=== PATIENT | male | born 2000 | race Caucasian/White ===

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

== ENCOUNTER 2020-01-03 08:23 | Emergency (ER) | payer BC, SELFPAY | END 2020-01-03 08:50 | disposition home or self-care (01) | LOC: ERS 08:23 | DX: A69.1 Other Vincent's infections (principal); F41.9 Anxiety disorder, unspecified; F32.9 Major depressive disorder, single episode, unspecified; Z79.899 Other long term (current) drug therapy | CPT/HCPCS: 99282 ==

== ENCOUNTER 2020-06-22 07:23 | Inpatient (IN) | payer OTHER, SELFPAY ==
[2020-06-22 08:24] LABS: #Lymphocytes 0.9 thou/uL (1.20-3.40); #Monocytes 0.4 thou/uL (0.11-0.59); #Neutrophils 3.7 thou/uL (1.40-6.50); %Basophils 0.9 % (0.0-1.0); %Eosinophils 0.9 % (0.0-10.0); %Monocytes 8.4 % (0.0-4.0); %Neutrophils 72.7 % (31.0-61.0); Hemoglobin 14.9 g/dL (14.0-18.0); Mean Corpuscular HGB CONC 34.4 g/dL (32.0-36.0); Mean Corpuscular Hemoglobin 31.7 pg (25.0-35.0); Mean Platelet Volume 7.3 fL (7.4-10.4); Platelet Count 183 thou/uL (130-400); RBC Distribution Width 11.5 % (11.5-14.5); White Blood Cell (WBC) Count 5.1 thou/uL (4.8-10.8)
[2020-06-22] MEDS ORDERED: Ondansetron PF 4 MG/2 ML Vial ONE (08:28)
[2020-06-22] MEDS ORDERED: Morphine 4 MG/ML VIAL ONE ×3 (08:28→15:50)
[2020-06-22 08:41] LABS: ALT (SGPT) 10 U/L (8-55); AST (SGOT) 14 U/L (5-34); Albumin 4.5 g/dL (3.5-5.0); Alkaline Phosphatase 59 U/L (50-130); Anion Gap 11 mmol/L (10-20); BUN (Urea Nitrogen) 7 mg/dL (8.9-20.6); Calc. Creatinine Clearance 0 mL/min (70-130); Calcium 8.8 mg/dL (7.8-10.44); Carbon Dioxide 28 mmol/L (22-29); Chloride 103 mmol/L (98-107); Globulin 2.4 g/dL (2.4-3.5); Glucose 110 mg/dL (70-105); Lipase 8 U/L (8-78); Protein, Total 6.9 g/dL (6.0-8.3); Sodium 138 mmol/L (136-145)
[2020-06-22 09:00] LABS: Bacteria/HPF None Seen HPF (None Seen); Bilirubin Negative (Negative); Blood, Urine Negative (Negative); Clarity Clear (Clear); Glucose, Urine (Dipstick) Normal (Negative); Ketone, Urine Negative (Negative); Leukocyte 500 Leu/uL (Negative); Nitrite 1+ (Negative); Protein, Urine (Dipstick) Negative (Neg-Trace); RBC/HPF 0-3 HPF (0-3); Specific Gravity, Urine 1.004 (1.002-1.036); Squamous Epithelial None Seen HPF (0-3); Urobilinogen Normal mg/dL (Less than 2); WBC/HPF Greater than 50 HPF (0-3)
--- NOTE | 2020-06-22 09:44 | CT ---
CT abdomen and pelvis with IV contrast HISTORY: Abdomen pain. Rectal bleeding. Dysuria. COMPARISON: 07/13/2019. FINDINGS: The lung bases are clear. The liver, spleen, kidneys, adrenal glands, and pancreas have a n ormal CT appearance. The tiny urinary tract calcifications on the prior study are not visible on this exam, possibly having passed in the interval. No evidence of bowel obstruction. A nondilated fluid-filled loop of small bowel sits immediately supe rior to the left side of the bladder dome. Appendix unremarkable. Prominent circumferential wall thickening of the rectum, measuring up to 1.1 cm. No adjacent free air . Minimal fluid. Stranding within the perirectal and presacral fat similar in appearance to the prior exam. Sagittal images best demonstrate soft tissue projecting below the expected level of the a nus, possibly related to degree of prolapse or prominent hemorrhoids. A left upper pararectal/internal inguinal lymph node is 0.8 cm short axis diameter and a nonspecific finding in th e setting of retroperitoneal inflammation. IMPRESSION : Prominent rectal wall thickening and perirectal fat stranding and perirectal lymph nodes not signific antly changed from the prior exam. No evidence of perforation or foreign body. Soft tissue density inferior to the expected level of the anus. Correlate for prolapse or prominent h emorrhoids.
--- NOTE | 2020-06-22 11:16 | PDOC.HHP ---
Hospitalist YUMI rectal pain History of Present Illness: 20-year-old male who came to emergency room with the lower abdominal pain and rectal bleeding, symptoms started on 4 days ago, patient was also having increased frequency and burning sensation with urination, patient also noticed some rectal bleeding yesterday, patient denies any fever or chills, patient was taking Azo for burning sensation in urination without any significant relief, he does not have any penile discharge, Patient reports that he had similar problem in the past and he required surgery for rectal prolapse, he was seeing gastroenterology in [facility], patient denies any sexually transmitted disease, he has 1 male partner but he denies any receptive intercourse, denies any rectal discharge, he denies any fever or chills, In the emergency room patient had abdominal CT scan because of lower abdominal pain which showed proctitis, his urine analysis consistent with urinary tract infection, in emergency room gastroenterology was notified, initially there was plan for discharge but he remained tachycardic so we decided to keep this patient in hospital for observation. ED Course: Patient is given morphine in the emergency room, Levaquin was given, gastroenterology has been consulted, Allergies/Adverse Reactions: Allergy/AdvReac Type Severity Reaction Status Date / Time amoxicillin Allergy Verified 06/22/20 11:18 Home Medications: Medication Instructions Recorded Confirmed Type No Known 06/22/20 06/22/20 History Past History: Past medical history rectal prolapse and kidney stone with a stent placement Past surgical history Surgery for rectal prolapse Stent for kidney stone Past psychiatric history Anxiety and depression Medication Zoloft for depression Social history No smoking no alcohol no drugs Hospitalist YUMI GARCIA ENT: denies: ear pain, ear discharge, nose pain, nose discharge, nose congestion, mouth pain, mouth swelling, throat pain, throat swelling, other Respiratory: denies: cough, dry, shortness of breath, hemoptysis, SOB with excertion, pleuritic pain, sputum, wheezing, other Cardiovascular: denies: chest pain, palpitations, orthopnea, paroxysmal noc. dyspnea, edema, light headedness, other Gastrointestinal: denies: nausea, vomiting, abdominal pain, diarrhea, constipation, melena, hematochezia, other Genitourinary: denies: dysuria, frequency, incontinence, hematuria, retention, other Musculoskeletal: denies: neck pain, shoulder pain, arm pain, back pain, hand pain, leg pain, foot pain, other Hospitalist Exam General Appearance: NAD, awake alert Eye: PERRL, anicteric sclera ENT: normocephalic atraumatic, no oropharyngeal lesions Neck: supple, symmetric, no JVD, no thyromegaly Heart: RRR, no murmur, no gallops, no rubs Respiratory: no wheezes, no rales, no ronchi Gastrointestinal: soft, non-tender, non-distended, normal bowel sounds Extremities: no cyanosis, no clubbing, no edema Skin: normal turgor, no lesions Neurological: no focal deficits Musculoskeletal: normal tone, normal strength Psychiatric: normal affect, normal behavior, A&O x 3 Hospitalist Results Result Diagrams: 06/22/20 08:11 06/22/20 08:11 Lab results: Laboratory Last Values WBC 5.1 thou/uL (4.8-10.8) 06/22/20 08:11 RBC 4.70 mill/uL (4.00-5.20) 06/22/20 08:11 Hgb 14.9 g/dL (14.0-18.0) 06/22/20 08:11 Hct 43.2 % (42.0-52.0) 06/22/20 08:11 MCV 92.0 fL (78.0-98.0) 06/22/20 08:11 MCH 31.7 pg (25.0-35.0) 06/22/20 08:11 MCHC 34.4 g/dL (32.0-36.0) 06/22/20 08:11 RDW 11.5 % (11.5-14.5) 06/22/20 08:11 Plt Count 183 thou/uL (130-400) 06/22/20 08:11 MPV 7.3 fL (7.4-10.4) L 06/22/20 08:11 Neutrophils % 72.7 % (31.0-61.0) H 06/22/20 08:11 Lymphocytes % 17.0 % (28.0-48.0) L 06/22/20 08:11 Monocytes % 8.4 % (0.0-4.0) H 06/22/20 08:11 Eosinophils % 0.9 % (0.0-10.0) 06/22/20 08:11 Basophils % 0.9 % (0.0-1.0) 06/22/20 08:11 Neutrophils # 3.7 thou/uL (1.40-6.50) 06/22/20 08:11 Lymphocytes # 0.9 thou/uL (1.20-3.40) L 06/22/20 08:11 Monocytes # 0.4 thou/uL (0.11-0.59) 06/22/20 08:11 Eosinophils # 0.0 thou/uL (0.0-0.7) 06/22/20 08:11 Basophils # 0.0 thou/uL (0.0-0.2) 06/22/20 08:11 Sodium 138 mmol/L (136-145) 06/22/20 08:11 Potassium 4.0 mmol/L (3.5-5.1) 06/22/20 08:11 Chloride 103 mmol/L (98-107) 06/22/20 08:11 Carbon Dioxide 28 mmol/L (22-29) 06/22/20 08:11 Anion Gap 11 mmol/L (10-20) 06/22/20 08:11 BUN 7 mg/dL (8.9-20.6) L 06/22/20 08:11 Creatinine 0.82 mg/dL (0.7-1.3) 06/22/20 08:11 Estimated GFR (MDRD) Greater than 90 06/22/20 08:11 Glucose 110 mg/dL (70-105) H 06/22/20 08:11 Lactic Acid 1.0 mmol/L (0.5-2.2) 06/22/20 08:56 Calcium 8.8 mg/dL (7.8-10.44) 06/22/20 08:11 Total Bilirubin 1.0 mg/dL (0.2-1.2) 06/22/20 08:11 AST 14 U/L (5-34) 06/22/20 08:11 ALT 10 U/L (8-55) 06/22/20 08:11 Alkaline Phosphatase 59 U/L (50-130) 06/22/20 08:11 Serum Total Protein 6.9 g/dL (6.0-8.3) 06/22/20 08:11 Albumin 4.5 g/dL (3.5-5.0) 06/22/20 08:11 Globulin 2.4 g/dL (2.4-3.5) 06/22/20 08:11 Albumin/Globulin Ratio 1.9 g/dL (1.2-2.2) 06/22/20 08:11 Lipase 8 U/L (8-78) 06/22/20 08:11 Urine Color [place] (Yellow) A 06/22/20 08:07 Urine Clarity Clear (Clear) 06/22/20 08:07 Urine pH 7.0 (5.0-9.0) 06/22/20 08:07 Ur Specific [place] 1.004 (1.002-1.036) 06/22/20 08:07 Urine Protein Negative mg/dL (Neg-Trace) 06/22/20 08:07 Urine Glucose (UA) Normal mg/dL (Negative) 06/22/20 08:07 Urine Ketones Negative mg/dL (Negative) 06/22/20 08:07 Urine Blood Negative (Negative) 06/22/20 08:07 Urine Nitrite 1+ (Negative) A 06/22/20 08:07 Urine Bilirubin Negative (Negative) 06/22/20 08:07 Urine Urobilinogen Normal mg/dL (Less than 2) 06/22/20 08:07 Ur Leukocyte Esterase 500 Jojo/uL (Negative) A 06/22/20 08:07 Urine RBC 0-3 HPF (0-3) 06/22/20 08:07 Urine WBC Greater than 50 HPF (0-3) A 06/22/20 08:07 Ur Squamous Epith Cells None Seen HPF (0-3) 06/22/20 08:07 Urine Bacteria None Seen HPF (None Seen) 06/22/20 08:07 CT scan - abdomen Status: image reviewed by me Additional Comments: CT Abdomen Pelvis W Con Observe DT: SatJun 22, 2020 08:21, ABDPELV CT abdomen and pelvis with IV contrast HISTORY: Abdomen pain. Rectal bleeding. Dysuria. COMPARISON: 07/13/2019. FINDINGS: The lung bases are clear. The liver, spleen, kidneys, adrenal glands, and pancreas have a n ormal CT appearance. The tiny urinary tract calcifications on the prior study are not visible on this exam, possibly having passed in the interval. No evidence of bowel obstruction. A nondilated fluid-filled loop of small bowel sits immediately supe rior to the left side of the bladder dome. Appendix unremarkable. Prominent circumferential wall thickening of the rectum, measuring up to 1.1 cm. No adjacent free air . Minimal fluid. Stranding within the perirectal and presacral fat similar in appearance to the prior exam. Sagittal images best demonstrate soft tissue projecting below the expected level of the a nus, possibly related to degree of prolapse or prominent hemorrhoids. A left upper pararectal/internal inguinal lymph node is 0.8 cm short axis diameter and a nonspecific finding in th e setting of retroperitoneal inflammation. IMPRESSION : Prominent rectal wall thickening and perirectal fat stranding and perirectal lymph nodes not signific antly changed from the prior exam. No evidence of perforation or foreign body. Soft tissue density inferior to the expected level of the anus. Correlate for prolapse or prominent h emorrhoids. Hospitalist H&P A/P (1) Proctitis Code(s): K62.89 - OTHER SPECIFIED DISEASES OF ANUS AND RECTUM Status: Acute (2) UTI (urinary tract infection) Status: Acute (3) Sinus tachycardia Code(s): R00.0 - TACHYCARDIA, UNSPECIFIED Status: Acute Plan: Observation to medical floor Gastroenterology consultation Pain control with morphine Continue Levaquin and Flagyl We will repeat labs tomorrow Continue IV fluid We will do STD screening
[2020-06-22] MEDS ORDERED: Ketorolac Tromethamine 30 MG/ML VIAL ONE (11:17)
[2020-06-22] MEDS ORDERED: Iopamidol 370 76% 100 ML VIAL ONE (14:15)
[2020-06-22] MEDS ORDERED: Sodium Chloride 0.65% Nasal 44 ML BOT EA NARE PRN (15:11)
[2020-06-22] MEDS ORDERED: Ondansetron ODT 4 MG TAB PO PRN (15:11)
[2020-06-22] MEDS ORDERED: Calcium Carbonate 500 MG ChewTAB PO PRN (15:11)
[2020-06-22] MEDS ORDERED: Cepastat Lozenges 1 LOZ PO PRN (15:11)
[2020-06-22] MEDS ORDERED: Bisacodyl 10 MG SUPP PR PRN (15:11)
[2020-06-22] MEDS ORDERED: Loperamide HCl 2 MG CAP PO PRN (15:11)
[2020-06-22] MEDS ORDERED: Zolpidem Tartrate 5 MG TAB PO PRN (15:11)
[2020-06-22] MEDS ORDERED: hydrALAZINE 20 MG/ML VIAL SLOW IVP PRN (15:11)
[2020-06-22] MEDS ORDERED: Acetaminophen 325 MG TAB PO PRN (15:11)
[2020-06-22] MEDS ORDERED: Senokot S 8.6-50 MG TAB PO PRN (15:11)
[2020-06-22] MEDS ORDERED: Guaifenesin DM 100-10/5 ML UDCUP PO PRN (15:11)
[2020-06-22] MEDS ORDERED: Bisacodyl 5 MG TAB PO PRN (15:11)
[2020-06-22] MEDS ORDERED: Loratadine 10 MG TAB PO PRN (15:11)
[2020-06-22] MEDS: Sodium Chloride 0.9% 1,000 ML IV SCH ×2 (15:48→23:07)
[2020-06-22] MEDS ORDERED: metroNIDAZOLE 500 MG/100 ML BAG ONE (15:50)
[2020-06-22] MEDS: metroNIDAZOLE 500 MG in Premix Bag 1 BAG IVPB SCH ×2 (16:00→23:09)
[2020-06-22] MEDS: Morphine 4 MG/ML VIAL SLOW IVP PRN ×2 (16:05→20:12)
[2020-06-22] MEDS ORDERED: GoLYTELY 4,000 ml Bottle PO SCH (16:30)
[2020-06-22 17:23] LABS: Syphilis Antibody Nonreactive (Nonreactive); Syphilis Antibody Index 0.02 S/CO (<1.00 Non-Reactive)
[2020-06-22 17:26] LABS: HIV (1/2) Antibody/Antigen Non-Reactive (NonReactive); HIV 1/2 INDEX 0.08 S/CO (<1.00)
[2020-06-22 18:47] VITALS: BMI 22.8
[2020-06-22 20:41] LABS: SARS-CoV-2 PCR by NAA Not Detected (NotDetected)
[2020-06-22] MEDS: Ondansetron PF 4 MG/2 ML Vial IVP PRN (21:52)
[2020-06-23] MEDS: Morphine 4 MG/ML VIAL SLOW IVP PRN ×3 (00:49→09:59)
--- NOTE | 2020-06-23 03:00 | CON ---
DATE OF CONSULTATION: 06/22/2020 REASON FOR CONSULTATION: Hematochezia, rectal pain, abnormal GI imaging. CONSULTING PROVIDER: Sharon Villavicencio MD HISTORY OF PRESENT ILLNESS: The patient is a 20-year-old male, with past medical history of nephrolithiasis, anxiety, depression, and rectal prolapse status post surgery in 2016/2017, presenting with complaints of abdominal pain and hematochezia. He states that he was in his usual state of health until approximately 2-3 days ago when he began having increased burning sensation with urination, consistent with dysuria. With the increased likelihood of a urinary tract infection, he began taking azo [id number] with no improvement in symptoms. This progressed to include left lower quadrant abdominal pain that started this morning. That was characterized as a sharp/throbbing type sensation, would radiate to the suprapubic and right lower quadrant, was constant with waxing/waning severity, and reached a severity of 9/10. This pain was worse with having a bowel movement and only better with administration of narcotic medications in the ER. With this abdominal pain, associated symptoms included hematochezia with blood present both on the toilet paper and in the toilet with bright red blood per rectum in addition to the appearance of diarrhea this morning, having approximately 5-6 liquid bowel movements over the last 12-24 hours. Otherwise, he does have some mild nausea, but denies any vomiting, fevers, chills, melena, hematemesis, dysphagia, odynophagia, constipation, or diarrhea prior to admission or weight loss. Of note, the patient was diagnosed with rectal prolapse in 2017 with his presentation being very similar to his current constellation of symptoms. He ultimately underwent surgery and had been doing well up until the last few days. REVIEW OF SYSTEMS: 10-category review of systems was obtained with all responses negative except for the pertinent positives as listed in HPI. PAST MEDICAL HISTORY: As per HPI. PAST SURGICAL HISTORY: Rectal prolapse with surgical repair, nephrolithiasis with stent placement. FAMILY HISTORY: Denies any GI malignancies. SOCIAL HISTORY: Denies any tobacco, alcohol, or illicit drug use. However, the patient is a homosexual male with last episode of receptive anal intercourse approximately 2-3 months ago. OUTPATIENT MEDICATIONS: None. ALLERGIES: AMOXICILLIN. PHYSICAL EXAMINATION: VITAL SIGNS: Temperature 98, pulse 90, blood pressure 139/66, respiratory rate 16, sating 95% on room air. GENERAL: The patient was lying in bed, in no acute distress. Alert and oriented x4. HEENT: Normocephalic, atraumatic. NECK: Supple. No JVD or scleral icterus noted. CARDIOVASCULAR: Borderline tachycardic rate but regular rhythm with no discernible murmurs, gallops, or rubs. RESPIRATORY: Clear to auscultation bilaterally with no discernible wheezes or rales. ABDOMEN: Normoactive bowel sounds. Soft, nondistended. Tenderness to palpation in the left lower quadrant, suprapubic, and right lower quadrant. EXTREMITIES: No cyanosis, clubbing, or edema. LABORATORY DATA: CBC with a white blood cell count of 5.1, hemoglobin 14.9, hematocrit 43.2, platelets 183. Chemistry with a sodium of 138, potassium 4, chloride 103, CO2 of 28, BUN 7, creatinine 0.82, glucose 110, AST 14, ALT 10, alkaline phosphatase 59, total bilirubin 1.0, lipase 8. Urinalysis consistent with urinary tract infection. IMAGING DATA: CT of the abdomen/pelvis was obtained on June 22, 2020, which showed prominent circumferential wall thickening with stranding of the perirectal and presacral fat that was stable when compared to previous. A soft tissue density was seen projecting below the level of the anus concerning for prolapse. ASSESSMENT AND PLAN: The patient is a 20-year-old male, with past medical history of nephrolithiasis, anxiety, depression, and rectal prolapse status post surgery, presenting with left lower quadrant abdominal pain, hematochezia, and abnormal GI imaging concerning for proctitis. Proctitis. The patient is presenting with fairly acute onset of left lower quadrant abdominal pain with associated symptoms including hematochezia and diarrhea. With significantly increased abdominal pain, it prompted him to seek healthcare assistance with a CT scan showing the presence of prominent circumferential wall thickening of the rectum as well as perirectal and presacral fat stranding concerning for an inflammatory type process. When compared to his symptoms 3 years ago when he had a rectal prolapse, his current constellation of symptoms are very similar; however, differential could also include infectious etiology, inflammatory bowel disease, solitary rectal ulcer syndrome, rectal prolapse, and/or GI neoplasm (less likely). The patient did undergo a colonoscopy 3 years ago with relatively normal findings per patient, but that was performed in [place], [place] with records not available for review at this time. RECOMMENDATIONS: 1. We would place the patient on a clear liquid diet for today in anticipation of endoscopic evaluation tomorrow. 2. We would plan for colonoscopy tomorrow for intraluminal evaluation. 3. Pain control per primary team. 4. Relatively normal findings during the colonoscopy, or presence of rectal prolapse, we would then consult General Surgery Service for evaluation and possible surgical correction. 5. We would obtain infectious stool studies for possible infectious etiology. 6. We would also obtain HIV and syphilis serologies as they could potentially contribute to his current clinical symptoms. We will continue to follow. Please call with any questions. Dr. Varela will be following the patient tomorrow. Job ID: [id number]
[2020-06-23 06:26] LABS: #Eosinphils 0.1 thou/uL (0.0-0.7); #Lymphocytes 1.2 thou/uL (1.20-3.40); #Monocytes 0.4 thou/uL (0.11-0.59); #Neutrophils 1.8 thou/uL (1.40-6.50); %Eosinophils 3.2 % (0.0-10.0); %Lymphocytes 32.3 % (28.0-48.0); %Monocytes 11.8 % (0.0-4.0); %Neutrophils 51.7 % (31.0-61.0); Hemoglobin 12.6 g/dL (14.0-18.0); Mean Corpuscular HGB CONC 34.7 g/dL (32.0-36.0); Mean Corpuscular Hemoglobin 31.9 pg (25.0-35.0); Mean Corpuscular Volume 91.9 fL (78.0-98.0); Mean Platelet Volume 7.2 fL (7.4-10.4); Platelet Count 157 thou/uL (130-400); RBC Distribution Width 11.5 % (11.5-14.5); Red Blood Cell (RBC) Count 3.94 mill/uL (4.00-5.20); White Blood Cell (WBC) Count 3.5 thou/uL (4.8-10.8)
[2020-06-23 06:42] LABS: ALT (SGPT) 8 U/L (8-55); AST (SGOT) 12 U/L (5-34); Albumin 3.6 g/dL (3.5-5.0); Alkaline Phosphatase 43 U/L (50-130); Anion Gap 9 mmol/L (10-20); BUN (Urea Nitrogen) 4 mg/dL (8.9-20.6); Calc. Creatinine Clearance 138 mL/min (70-130); Calcium 8.3 mg/dL (7.8-10.44); Carbon Dioxide 29 mmol/L (22-29); Chloride 106 mmol/L (98-107); Glucose 94 mg/dL (70-105); Potassium 3.9 mmol/L (3.5-5.1); Protein, Total 5.6 g/dL (6.0-8.3); Sodium 140 mmol/L (136-145)
[2020-06-23] MEDS: Sodium Chloride 0.9% 1,000 ML IV SCH ×3 (07:37→15:13)
[2020-06-23] MEDS: metroNIDAZOLE 500 MG in Premix Bag 1 BAG IVPB SCH ×3 (08:34→23:45)
[2020-06-23] MEDS: Polyethylene Glycol 3350 17 GM Packet PO SCH (08:35)
[2020-06-23] MEDS ORDERED: Rocuronium Bromide 10 MG/ML (10ML VIAL) ONE (10:08)
[2020-06-23] MEDS ORDERED: Dexamethasone 20 MG/5 ML VIAL ONE (10:08)
[2020-06-23] MEDS ORDERED: Lidocaine 1% PF 5 ML VIAL ONE (10:08)
[2020-06-23] MEDS ORDERED: PROPOFOL 200 MG/20 ML VIAL ONE (10:08)
[2020-06-23] MEDS ORDERED: Glycopyrrolate 0.2 MG/ML 5 ML SYRINGE ONE (10:08)
[2020-06-23] MEDS ORDERED: Ondansetron PF 4 MG/2 ML Vial ONE (10:08)
[2020-06-23] MEDS ORDERED: Fentanyl 100 MCG/2 ML VIAL ONE (12:39)
--- NOTE | 2020-06-23 14:13 | OP ---
DATE OF PROCEDURE: 06/23/2020 PROCEDURE PERFORMED: Colonoscopy with biopsy. PREOPERATIVE DIAGNOSES: Hematochezia and diarrhea, rectal pain with history of rectal prolapse. DESCRIPTION OF PROCEDURE: Informed consent was obtained from the patient. He was sedated with total intravenous anesthesia. The rectal exam was performed and revealed small external hemorrhoids, but was otherwise normal. The colonoscope was advanced to the terminal ileum without difficulty. The mucosa of the terminal ileum was normal. The ileocecal valve and appendiceal orifice were clearly identified. The preparation quality was good. Random biopsies were taken from the right colon and the descending and sigmoid colon. The mucosa throughout all these areas was normal. There were 4 discrete ulcerations in the rectum, which were broad-based several centimeters but shallow between 5 cm from the anal verge to 10 cm from the anal verge. These were not circumferential. The mucosa around the ulcerations appeared normal. Biopsies were obtained from the ulcers. He had a circular scar above the anal verge, which appears more consistent with a stapled hemorrhoidectomy than an anastomosis for rectal prolapse. We will need to tease out that history a little further. The remainder of the colonic mucosa was normal. IMPRESSION: 1. Shallow but broad-based ulcers in the rectum. These were discrete with normal surrounding mucosa. Biopsies were obtained. This could be ischemic ulcers from mechanical or prolapse. Rule out inflammatory ulcers. We will also send viral stains. 2. Otherwise, normal colonoscopy to the terminal ileum. There was a circular scar in the distal rectum that is more consistent with a stapled hemorrhoidectomy type finding than resection from rectal prolapse, but this history will need to be evaluated further. RECOMMENDATIONS: 1. Await histopathology. 2. Metamucil 1 tablespoon daily. 3. We will likely need to add MiraLAX 17 g daily. We will want to reduce any straining at bowel movements and prevent any constipation. 4. Advance diet and he can follow up in GI Clinic if he tolerates that to go over biopsy results and further management plan. Job ID: [id number] [facility]
[2020-06-23] MEDS: HYDROcodone/Acetaminophen 10/325 mg Tablet PO PRN ×3 (15:49→23:45)
[2020-06-23] MEDS ORDERED: Metamucil PACK PO SCH (16:00)
[2020-06-23] MEDS ORDERED: Polyethylene Glycol 3350 17 GM Packet PO SCH (16:00)
--- NOTE | 2020-06-23 18:06 | PDOC.HOSPP ---
- Subjective Encounter Date: 06/23/20 Subjective: Patient is status post colonoscopy with biopsy. Tolerated that well. Says he had some vomiting in the endoscopy suite. He has tried to eat dinner this evening and is having some odynophagia and nausea. He also had an episode of urine retention requiring a cath x1. - Objective Vital Signs & Weight: Vital Signs (12 hours) Temp Pulse Resp BP Pulse Ox 06/23/20 17:30 97.5 F L 90 16 125/79 97 06/23/20 16:28 97.9 F 85 16 129/77 98 06/23/20 13:30 98 F 88 16 130/68 97 06/23/20 09:45 97.8 F 70 16 132/76 99 06/23/20 07:33 97.7 F 69 16 107/66 96 06/23/20 06:22 97.7 F 75 20 110/68 96 Weight Weight 145 lb 12.8 oz I&O: 06/22/20 06/23/20 06/24/20 06:59 06:59 06:59 Intake Total 1201 Output Total 900 Balance 301 Result Diagrams: 06/23/20 05:58 06/23/20 05:58 Hospitalist ROS - Medication Medications: Active Medications Generic Name Dose Route Start Last Admin Trade Name Freq PRN Reason Stop Dose Admin Hydrocodone Bitart/Acetaminophen 1 tab 06/22/20 15:11 06/23/20 15:49 Hydrocodone/Acetaminophen 10/325 Mg Tablet PO 1 tab Q4H PRN Administration Moderate Pain (4-6) Sodium Chloride 1,000 mls @ 125 mls/hr 06/22/20 15:11 06/23/20 15:13 Normal Saline 0.9% IV Not Given .Q8H ARTEMIO Levofloxacin 500 mg/ Device 100 mls @ 100 mls/hr 06/23/20 11:00 06/23/20 13:59 IVPB Not Given 1100 ARTEMIO Metronidazole 500 mg/ Device 100 mls @ 100 mls/hr 06/22/20 16:00 06/23/20 15:50 IVPB 100 mls 0800,1600,2359 ARTEMIO Administration Ondansetron HCl 4 mg 06/22/20 15:11 06/22/20 21:52 Ondansetron Pf 4 Mg/2 Ml Vial IVP 4 mg Q6H PRN Administration Nausea/Vomiting Pantoprazole Sodium 40 mg 06/23/20 09:00 06/23/20 08:33 Pantoprazole 40 Mg Tab PO 40 mg DAILY ARTEMIO Administration Polyethylene Glycol 17 gm 06/23/20 09:00 06/23/20 08:35 Polyethylene Glycol 3350 17 Gm Packet PO Not Given DAILY [facility] Hospitalist Exam Vitals: Vital Signs (12 hours) Temp Pulse Resp BP Pulse Ox 06/23/20 17:30 97.5 F L 90 16 125/79 97 06/23/20 16:28 97.9 F 85 16 129/77 98 06/23/20 13:30 98 F 88 16 130/68 97 06/23/20 09:45 97.8 F 70 16 132/76 99 06/23/20 07:33 97.7 F 69 16 107/66 96 06/23/20 06:22 97.7 F 75 20 110/68 96 Weight Weight 145 lb 12.8 oz General Appearance: NAD, awake alert Heart: RRR, no murmur, no gallops, no rubs, normal peripheral pulses Respiratory: CTAB, no wheezes, no rales, no ronchi, normal chest expansion, no tachypnea, normal percussion Gastrointestinal: soft, non-tender, non-distended, normal bowel sounds, no palpable masses, no hepatomegaly, no splenomegaly, no bruit Extremities: no cyanosis, no clubbing, no edema Skin: normal turgor Neurological: no focal deficits Musculoskeletal: normal tone, normal strength, no muscle wasting Psychiatric: normal affect, normal behavior, A&O x 3 Hosp A/P (1) Rectal ulcer Code(s): K62.6 - ULCER OF ANUS AND RECTUM Status: Acute (2) Urinary retention Code(s): R33.9 - RETENTION OF URINE, UNSPECIFIED Status: Acute (3) Nausea and vomiting Code(s): R11.2 - NAUSEA WITH VOMITING, UNSPECIFIED Status: Acute (4) Odynophagia Code(s): R13.10 - DYSPHAGIA, UNSPECIFIED Status: Acute (5) Proctitis Code(s): K62.89 - OTHER SPECIFIED DISEASES OF ANUS AND RECTUM Status: Acute (6) Sinus tachycardia Code(s): R00.0 - TACHYCARDIA, UNSPECIFIED Status: Acute (7) UTI (urinary tract infection) Status: Acute - Plan Rectal ulcer with pain: Colonoscopy today with biopsy taken. Discussed with GI. Further recommendations the patient may discharge and follow-up with them as an outpatient. Continue with stool softeners to avoid any constipation or straining. Nausea and vomiting: May be related to periprocedural medications. We will treat as needed and observe overnight. Urinary retention: Patient required a straight cath following his colonoscopy. Unclear if this is medication related or some inflammatory changes with the prostate. Again we will simply observe for now and straight cath if required. Odynophagia: With the rectal ulcer certainly concerning that he may have some type of viral complex that could cause some esophagitis as well. If this persist will reconsult GI. Urinary tract infection: No growth at 24 hours. Actually appears like this may be more urethritis or reactive inflammation from the rectal lesion. He remains on Levaquin and Flagyl for now.
[2020-06-23] MEDS ORDERED: Enoxaparin Sodium 30 MG/0.3 ML SYRINGE SC SCH (18:15)
[2020-06-23] MEDS: Ondansetron PF 4 MG/2 ML Vial IVP PRN (19:50)
[2020-06-24] MEDS: Sodium Chloride 0.9% 1,000 ML IV SCH ×2 (00:20→06:05)
[2020-06-24] MEDS: HYDROcodone/Acetaminophen 10/325 mg Tablet PO PRN ×2 (06:07→10:03)
[2020-06-24] MEDS: Polyethylene Glycol 3350 17 GM Packet PO SCH (07:57)
[2020-06-24] MEDS: metroNIDAZOLE 500 MG in Premix Bag 1 BAG IVPB SCH (07:58)
[2020-06-24] MEDS ORDERED: Metamucil PACK PO SCH (09:00)
[2020-06-24] MEDS: Ketorolac Tromethamine 10 MG TAB PO SCH ×3 (13:45→23:16)
[2020-06-24] MEDS ORDERED: Sodium Chloride 0.9% 1,000 ML IV SCH (14:41)
--- NOTE | 2020-06-24 15:21 | PRG ---
DATE OF SERVICE: 06/24/2020 SUBJECTIVE: Mr. Santillan complains of pain with swallowing, which is goes down through his throat and then on down through his substernal region. This is worse with solids and liquids. No nausea or vomiting. He has had 5 stools today and has had some rectal pain with bowel movements. OBJECTIVE: VITAL SIGNS: Temperature 97.9, pulse 87, blood pressure 131/78. GENERAL: He is in no acute distress. Alert and oriented x3. LUNGS: Clear to auscultation bilaterally. HEART: Regular rate and rhythm without murmur. ABDOMEN: Soft, nontender, nondistended. Bowel sounds are present. EXTREMITIES: No lower extremity edema. LABORATORY DATA: Creatinine 0.8, bilirubin 1.0, AST 12, ALT 8, alkaline phosphatase 43, lipase 8. IMPRESSION: 1. Ischemic ulcerations of the rectum by history, is likely secondary to prolapse; however, I have seen no prolapse during his hospital stay directly. He does not have prolapse to the point they asked to reduce his rectum. Still clinical history is consistent with that and the primary treatment at this point is to bulk up the stool with fiber and keep it soft with osmotic laxative. He has had more stools and necessary today, so I will increase his Metamucil to twice daily and reduce his MiraLax 1/2 dose daily. 2. Odynophagia. This could be pill esophagitis or fungal esophagitis. He can stop the IV antibiotics at this point. He has been on a proton pump inhibitor. I do not see any obvious offenders regarding any certain pills expected to cause pill esophagitis. We will evaluate with endoscopy. RECOMMENDATIONS: 1. Adjust the fiber to twice daily and MiraLax down to 1/2 dose daily. 2. Stop antibiotics. 3. EGD tomorrow. 4. Continue proton pump inhibitor. 5. If he continues to have rectal pain after an adequate trial of fiber and osmotic laxative, then referral could be made back to Colorectal Surgery for opinion. Job ID: [id number]
[2020-06-25] MEDS: Ketorolac Tromethamine 10 MG TAB PO SCH ×2 (05:44→11:19)
[2020-06-25] MEDS ORDERED: diphenhydrAMINE 50 MG/ML VIAL ONE (09:38)
[2020-06-25] MEDS ORDERED: PROPOFOL 200 MG/20 ML VIAL ONE (09:38)
[2020-06-25 10:16] LABS: Hemoglobin 14.4 g/dL (14.0-18.0); Mean Corpuscular HGB CONC 35.3 g/dL (32.0-36.0); Mean Corpuscular Hemoglobin 32.3 pg (25.0-35.0); Mean Corpuscular Volume 91.5 fL (78.0-98.0); Mean Platelet Volume 6.8 fL (7.4-10.4); Platelet Count 193 thou/uL (130-400); RBC Distribution Width 11.5 % (11.5-14.5); Red Blood Cell (RBC) Count 4.46 mill/uL (4.00-5.20); White Blood Cell (WBC) Count 3.8 thou/uL (4.8-10.8)
[2020-06-25] MEDS ORDERED: Ondansetron HCl/PF 4 MG/2 ML Vial IVP PRN (13:57)
[2020-06-25] MEDS ORDERED: Promethazine HCl 25 MG/ML VIAL SLOW IVP PRN (13:57)
[2020-06-25] MEDS ORDERED: Promethazine HCl 25 MG/ML VIAL IM PRN (13:57)
--- NOTE | 2020-06-25 14:11 | OP ---
DATE OF PROCEDURE: 06/25/2020 PROCEDURE PERFORMED: Esophagogastroduodenoscopy. PREOPERATIVE DIAGNOSIS: Odynophagia. He has been receiving antibiotics in the hospital and started complaining of odynophagia. DESCRIPTION OF PROCEDURE: Informed consent was obtained from the patient. He was sedated with total intravenous anesthesia. The bite block was placed, and the endoscope was advanced easily to the second portion of the duodenum, and retroflexion was performed in the stomach. The esophagus was normal distally. However, the mid and proximal esophagus had multiple white plaques consistent with a mild fungal esophagitis. The GE junction was normal. The stomach was normal including retroflexed views. The pylorus and first and second portions of the duodenum were normal. IMPRESSION: 1. Mild fungal esophagitis. 2. Otherwise normal esophagogastroduodenoscopy. RECOMMENDATIONS: 1. Fluconazole 400 mg today and then 200 mg daily for 13 more days. 2. Metamucil and MiraLAX for the rectal symptoms. 3. Anticipate discharge home today. Follow up with Dr. Eagle in 4 weeks. Job ID: [id number]
[2020-06-25] MEDS ORDERED: Fluconazole 100 MG TAB PO SCH (14:45)
--- NOTE | 2020-06-25 14:54 | PDOC.DS.DS ---
Provider Date of Admission: 06/23/20 16:55 Date of Discharge: 06/25/20 Admitting Provider: Sharon Villavicencio MD Primary Care Physician: NO PCP PROVIDER Course Hospital Course: Discharge Diagnoses: Ischemic colitis possibly from history of recurrent rectal prolapse Anal ulcers Constipation Fungal esophagitis Brief HPI: This is a 20 year old male with history of rectal prolapse who presented to the ER with abdominal pain and rectal bleeding for three days. He has had rectal prolapse since he was a child intermittently. He does not have regular bowel movements daily. He is sexually active with one male spouse. He has not had an HIV test. Hospital Course: The patient was not found to have rectal prolapse on exam. He underwent colonoscopy which showed broad-based ulcers in his rectum near the anal verge. Biopsy showed ischemic colitis. The patient was initially treated with levaquin and flagyl for three days. He was transitioned to a regular diet and his rectal bleeding resolved so antibiotics were discontinued. He was started on metamucil and miralax for constipation and was advised to f/u with Dr. Eagle in four weeks. Odynophagia: the patient underwent EGD on 06/25 which shoswed mild fungal esophagitis. He was loaded with fluconazole 400 mg and will be discharged with fluconazole 200 mg daily. HIV test was ordered on the day of discharge given that he has a male sexual partner and had some leukopenia. Test results are pending. Pertinent Studies: Colon biopsy: ischemic colitis CT abdomen: prominent rectal wall thickening and perirectal fat stranding and perirectal lymph nodes . Soft tissue density inferior to the level of the anus. Correlate for prolapse or prominent hemorrhoids. Resuscitation Status: 06/22/20 11:20 Resuscitation Status Routine Resuscitation Status: FULL: Full Resuscitation Lab Results: 06/25/20 09:57 06/23/20 05:58 Abnormal Lab Results - Last 48 hrs 06/25/20 09:57: WBC 3.8 L, Hct 40.8 L, MPV 6.8 L Microbiology - Entire Visit 06/22/20 21:50 Stool - Liquid Stool Culture - Final 06/22/20 11:26 Venous blood - Left Arm Blood Culture - Preliminary NO GROWTH AT 48 HOURS 06/22/20 11:26 Venous blood - Right Arm Blood Culture - Preliminary NO GROWTH AT 48 HOURS 06/22/20 08:07 Urine voided Urine Culture - Final NO GROWTH AT 48 HOURS 06/22/20 21:50 Stool - Liquid Campylobacter Antigen Assay - Final 06/22/20 21:50 Stool - Liquid Shiga Toxin Test - Final 06/22/20 21:50 Stool C. difficile GDH Antigen & Toxins - Final 06/22/20 09:29 Stool - Pending - Final Vitals: Vital Signs (12 hours) Temp Pulse Resp BP Pulse Ox 06/25/20 14:37 97.6 F 75 20 128/81 100 06/25/20 08:15 98.2 F 87 18 123/76 98 Weight Weight 145 lb 12.8 oz Physical Exam: The patient was seen and examined on the day of discharge. General Appearance: NAD, awake alert Eye: PERRL, anicteric sclera ENT: normocephalic atraumatic, no oropharyngeal lesions Neck: supple, no JVD Respiratory: CTAB, no wheezes, no rales, no ronchi Cardiovascular: RRR, no murmur, no gallops, no rubs Gastrointestinal: soft, non-tender, non-distended, normal bowel sounds Extremities: no cyanosis, no clubbing, no edema Skin: normal turgor, no lesions, no rashes Neurological: cranial nerve grossly intact, normal sensation to touch, no weakness Musculoskeletal: normal tone, normal strength, no muscle wasting PSYCH: normal affect, normal behavior, A&O x 3 Plan Prescriptions: Fluconazole [Diflucan] 200 mg PO DAILY #13 tablet Psyllium Seed (With Sugar) [Metamucil Packet] 1 pk PO DAILY #1 pk Polyethylene Glycol 3350 [Miralax] 17 gm PO DAILY #30 pk Home Medications: Medication Instructions Recorded Confirmed Type Sertraline HCl [Zoloft] 100 mg PO DAILY 06/22/20 06/22/20 History Fluconazole [Diflucan] 200 mg PO DAILY #13 tablet 06/25/20 Rx Polyethylene Glycol 3350 [Miralax] 17 gm PO DAILY #30 pk 06/25/20 Rx Psyllium Seed (With Sugar) 1 pk PO DAILY #1 pk 06/25/20 Rx [Metamucil Packet] Allergies: amoxicillin Allergy (Verified 06/22/20 11:18) Activity:: Activity as Tolerated Nourishment:: Regular Diet Referrals: PROVIDER,NO PCP [Primary Care Provider] - Disposition: HOME Quality CORE MEASURES:: N/A
[2020-06-25 15:53] LABS: HIV (1/2) Antibody/Antigen Non-Reactive (NonReactive); HIV 1/2 INDEX 0.09 S/CO (<1.00)
[2020-06-25 16:56] VITALS: BP 137/80; TEMP 98.4
[2020-06-26] MEDS ORDERED: Fluconazole 100 MG TAB PO SCH (09:00)
== END 2020-06-25 17:18 | disposition home or self-care (01) | DRG 394 ==
LOC: ERS 07:23 → ERHOLD 11:39 → T4-B 18:06 → OBSVTOIN 06-23 16:55
PROVIDERS: ADMIT Internal Medicine; ATTEND Internal Medicine
PROC: 0DBM8ZX Excision of Descending Colon, Via Natural or Artificial Opening Endoscopic, Diagnostic (ICD-10-PCS; principal; 2020-06-23)
PROC: 0DBN8ZX Excision of Sigmoid Colon, Via Natural or Artificial Opening Endoscopic, Diagnostic (ICD-10-PCS; 2020-06-23)
PROC: 0DBP8ZX Excision of Rectum, Via Natural or Artificial Opening Endoscopic, Diagnostic (ICD-10-PCS; 2020-06-23)
PROC: 0DBF8ZX Excision of Right Large Intestine, Via Natural or Artificial Opening Endoscopic, Diagnostic (ICD-10-PCS; 2020-06-23)
PROC: 0DJ08ZZ Inspection of Upper Intestinal Tract, Via Natural or Artificial Opening Endoscopic (ICD-10-PCS; 2020-06-25)
DX: K55.9 Vascular disorder of intestine, unspecified (principal); K62.6 Ulcer of anus and rectum; N39.0 Urinary tract infection, site not specified; B37.81 Candidal esophagitis; K62.3 Rectal prolapse; K62.89 Other specified diseases of anus and rectum; Z20.822 Contact with and (suspected) exposure to COVID-19; F41.9 Anxiety disorder, unspecified; F32.9 Major depressive disorder, single episode, unspecified; R13.10 Dysphagia, unspecified; R33.9 Retention of urine, unspecified; Z88.1 Allergy status to other antibiotic agents
CPT/HCPCS: 36415; 74177; 80053; 81003; 81015; 82270; 83605; 83690; 85025; 85027; 86780; 87040; 87045; 87046; 87086; 87324; 87389; 87427; 87449; 87491; 87591; 87635; 88305; 94760; 96365; 96366; 96375; 96376; G0378; J1100; J1200; J1650; J1885; J1956; J2270; J2405; J2704; J3010; Q9967; U0003; U0005

== ENCOUNTER 2020-07-06 18:12 | Emergency (ER) | payer OTHER ==
[2020-07-06 19:52] LABS: Bilirubin Negative (Negative); Blood, Urine Negative (Negative); Clarity Clear (Clear); Glucose, Urine (Dipstick) Normal (Negative); Ketone, Urine Negative (Negative); Leukocyte Negative Leu/uL (Negative); Nitrite Negative (Negative); Protein, Urine (Dipstick) Negative (Neg-Trace); Specific Gravity, Urine 1.002 (1.002-1.036); Urobilinogen Normal mg/dL (Less than 2); pH, Urine 6.5 (5.0-9.0)
== END 2020-07-06 20:07 | disposition home or self-care (01) ==
LOC: ERS 18:12
DX: K62.3 Rectal prolapse (principal)
CPT/HCPCS: 81003; 99283

== ENCOUNTER 2020-07-07 15:44 | Outpatient (CLI) | payer OTHER ==
[2020-07-07 16:39] LABS: #Basophils 0.1 10x3/uL (0.0-0.2); #Eosinphils 0.1 10x3/uL (0.0-0.5); #Monocytes 0.7 10x3/uL (0.0-1.1); #Neutrophils 2.8 10x3/uL (1.5-8.4); %Basophils 1.2 % (0.0-2.0); %Eosinophils 1.8 % (0.0-6.0); %Lymphocytes 27.2 % (18.0-47.0); %Monocytes 12.9 % (0.0-10.0); %Neutrophils 56.3 % (40.0-75.0); Hemoglobin 13.3 g/dL (13.5-17.5); Mean Corpuscular HGB CONC 34.6 g/dL (32.0-36.0); Mean Corpuscular Hemoglobin 30.8 pg (27.0-33.0); Mean Corpuscular Volume 88.9 fl (81.2-95.1); Mean Platelet Volume 9.8 fl (7.4-10.4); Platelet Count 239 10x3/uL (150-450); RBC Distribution Width 11.9 % (11.5-14.5); Red Blood Cell (RBC) Count 4.32 10x6/uL (4.32-5.72)
[2020-07-07 17:04] LABS: ALT (SGPT) 15 U/L (8-55); AST (SGOT) 15 U/L (5-34); Albumin 4.5 g/dL (3.5-5.0); Alkaline Phosphatase 60 U/L (50-130); Anion Gap 9 mmol/L (10-20); BUN (Urea Nitrogen) 9 mg/dL (8.9-20.6); Bilirubin, Total 0.6 mg/dL (0.2-1.2); Calc. Creatinine Clearance 0 mL/min (70-130); Calcium 9.3 mg/dL (7.8-10.44); Carbon Dioxide 31 mmol/L (22-29); Chloride 102 mmol/L (98-107); Globulin 2.1 g/dL (2.4-3.5); Glucose 96 mg/dL (70-105); Potassium 4.2 mmol/L (3.5-5.1); Protein, Total 6.6 g/dL (6.0-8.3); Sodium 138 mmol/L (136-145)
[2020-07-08 04:33] LABS: SARS-CoV-2 PCR by NAA Not Detected (NotDetected)
== END 2020-07-07 15:45 | disposition home or self-care (01) ==
LOC: LABBT 15:44
PROVIDERS: ATTEND Surgery
DX: Z01.812 Encounter for preprocedural laboratory examination (principal); Z20.822 Contact with and (suspected) exposure to COVID-19; K62.3 Rectal prolapse
CPT/HCPCS: 80053; 85025; 87635; U0003; U0005

== ENCOUNTER 2020-07-07 17:15 | Inpatient (IN) | payer OTHER ==
[2020-07-12 10:03] VITALS: BMI 22.2
[2020-07-13] MEDS ORDERED: Levofloxacin 500 mg/D5W 100 ml Premix Bag ONE (06:08)
[2020-07-13] MEDS ORDERED: Midazolam HCl 2 mg/2 ml Vial ONE ×2 (06:27→07:20)
[2020-07-13] MEDS ORDERED: Fentanyl 250 MCG/5 ML VIAL ONE (06:27)
[2020-07-13] MEDS ORDERED: Lidocaine 4% Topical Sol 50 ML BOT ONE (06:58)
[2020-07-13 07:03] LABS: Hemoglobin A1c 4.6 % (4.0-6.0)
[2020-07-13] MEDS ORDERED: Fentanyl 100 MCG/2 ML VIAL ONE ×2 (07:20→11:50)
[2020-07-13] MEDS ORDERED: Ketorolac Tromethamine 30 MG/ML VIAL ONE (07:53)
[2020-07-13] MEDS ORDERED: Dexamethasone 20 MG/5 ML VIAL ONE (07:53)
[2020-07-13] MEDS ORDERED: Glycopyrrolate 0.2 MG/ML 5 ML SYRINGE ONE (07:53)
[2020-07-13] MEDS ORDERED: Lidocaine 1% PF 5 ML VIAL ONE (07:53)
[2020-07-13] MEDS ORDERED: PROPOFOL 200 MG/20 ML VIAL ONE (07:53)
[2020-07-13] MEDS ORDERED: Ondansetron PF 4 MG/2 ML Vial ONE (07:53)
[2020-07-13] MEDS ORDERED: Rocuronium Bromide 10 MG/ML (10ML VIAL) ONE (07:53)
[2020-07-13] MEDS ORDERED: Bupivacaine HCl 0.5%/Epinephrine 1:200,000/PF 30 ml Vial ONE (07:53)
[2020-07-13] MEDS ORDERED: hydrALAZINE 20 MG/ML VIAL SLOW IVP PRN (11:24)
[2020-07-13] MEDS ORDERED: Ondansetron PF 4 MG/2 ML Vial IVP PRN (11:24)
[2020-07-13] MEDS ORDERED: Morphine 2 MG/ML VIAL SLOW IVP PRN (11:24)
[2020-07-13] MEDS ORDERED: Promethazine HCl 25 MG/ML VIAL IM PRN ×3 (11:24→12:22)
[2020-07-13] MEDS ORDERED: Morphine 4 MG/ML VIAL SLOW IVP PRN (11:24)
[2020-07-13] MEDS ORDERED: Ondansetron HCl/PF 4 MG/2 ML Vial IVP PRN ×2 (11:28→12:22)
[2020-07-13] MEDS ORDERED: Promethazine HCl 25 MG/ML VIAL SLOW IVP PRN ×2 (11:28→12:22)
[2020-07-13] MEDS ORDERED: HYDROmorphone 0.5 MG/0.5 ML SYRINGE ONE ×3 (12:09→13:24)
[2020-07-13] MEDS ORDERED: diphenhydrAMINE 50 MG/ML VIAL IM PRN (12:22)
[2020-07-13] MEDS ORDERED: Naloxone HCl 0.4 mg/ml Vial IV PRN (12:22)
[2020-07-13] MEDS ORDERED: Zolpidem Tartrate 5 MG TAB PO PRN (12:22)
[2020-07-13] MEDS ORDERED: HYDROmorphone 2 MG/ML VIAL SLOW IVP PRN (12:22)
[2020-07-13] MEDS ORDERED: HYDROmorphone 10 mg/100 ml CADD IVPB PRN (12:22)
[2020-07-13] MEDS ORDERED: diphenhydrAMINE 25 MG CAP PO PRN (12:22)
[2020-07-13] MEDS ORDERED: Communication Order-Pharmacy FS SCH (12:30)
[2020-07-13] MEDS: Ondansetron PF 4 MG/2 ML Vial IVP PRN ×2 (16:18→21:06)
[2020-07-13] MEDS: Ketorolac Tromethamine 30 MG/ML VIAL IVP SCH ×3 (17:21→23:24)
[2020-07-13] MEDS: metroNIDAZOLE 500 MG in Premix Bag 1 BAG IVPB SCH ×2 (17:21→20:37)
[2020-07-13] MEDS: Sodium Chloride 0.9% 1,000 ML IV SCH ×2 (17:21→20:37)
[2020-07-13] MEDS: Famotidine/PF 20 mg/2ml Vial SLOW IVP SCH (20:37)
[2020-07-13] MEDS: Famotidine 20 MG TAB PO SCH (20:41)
[2020-07-13] MEDS: Promethazine HCl 25 MG/ML VIAL IM PRN (23:18)
[2020-07-14] MEDS: diphenhydrAMINE 50 MG/ML VIAL IVP PRN ×6 (02:17→20:39)
[2020-07-14] MEDS: metroNIDAZOLE 500 MG in Premix Bag 1 BAG IVPB SCH ×3 (04:50→20:42)
[2020-07-14] MEDS: Sodium Chloride 0.9% 1,000 ML IV SCH ×2 (04:57→13:32)
[2020-07-14 05:49] LABS: #Lymphocytes 0.8 thou/uL (1.20-3.40); #Monocytes 0.8 thou/uL (0.11-0.59); #Neutrophils 7.7 thou/uL (1.40-6.50); %Basophils 0.1 % (0.0-1.0); %Eosinophils 0.2 % (0.0-10.0); %Monocytes 8.7 % (0.0-4.0); Hemoglobin 12.8 g/dL (14.0-18.0); Mean Corpuscular HGB CONC 34.1 g/dL (32.0-36.0); Mean Corpuscular Hemoglobin 31.6 pg (25.0-35.0); Mean Corpuscular Volume 92.8 fL (78.0-98.0); Mean Platelet Volume 7.6 fL (7.4-10.4); Platelet Count 189 thou/uL (130-400); RBC Distribution Width 11.7 % (11.5-14.5); Red Blood Cell (RBC) Count 4.05 mill/uL (4.00-5.20); White Blood Cell (WBC) Count 9.4 thou/uL (4.8-10.8)
[2020-07-14] MEDS: Ketorolac Tromethamine 30 MG/ML VIAL IVP SCH ×3 (05:54→17:27)
[2020-07-14 06:12] LABS: Anion Gap 12 mmol/L (10-20); BUN (Urea Nitrogen) 8 mg/dL (8.9-20.6); Calc. Creatinine Clearance 133 mL/min (70-130); Calcium 8.6 mg/dL (7.8-10.44); Carbon Dioxide 28 mmol/L (22-29); Chloride 103 mmol/L (98-107); Glucose 92 mg/dL (70-105); Potassium 3.6 mmol/L (3.5-5.1); Sodium 139 mmol/L (136-145)
[2020-07-14] MEDS: Enoxaparin Sodium 40 MG/0.4 ML SYRINGE SC SCH (09:15)
[2020-07-14] MEDS: Famotidine/PF 20 mg/2ml Vial SLOW IVP SCH ×2 (09:15→20:39)
[2020-07-14] MEDS: Famotidine 20 MG TAB PO SCH ×2 (09:16→21:15)
[2020-07-14] MEDS: fentaNYL Citrate/PF 2,000 MCG in Sodium Chloride 0.9% 60 ML IV PRN ×2 (09:43→20:38)
[2020-07-14] MEDS ORDERED: Sodium Chloride 0.9% 500 ML IV SCH (12:30)
[2020-07-15] MEDS: Ondansetron PF 4 MG/2 ML Vial IVP PRN (00:23)
[2020-07-15] MEDS: Sodium Chloride 0.9% 1,000 ML IV SCH ×4 (00:23→20:29)
[2020-07-15] MEDS: Ketorolac Tromethamine 30 MG/ML VIAL IVP SCH ×4 (00:23→17:17)
[2020-07-15] MEDS: diphenhydrAMINE 50 MG/ML VIAL IVP PRN (00:30)
[2020-07-15] MEDS: Promethazine HCl 25 MG/ML VIAL IM PRN ×2 (00:44→10:03)
[2020-07-15] MEDS: metroNIDAZOLE 500 MG in Premix Bag 1 BAG IVPB SCH ×3 (04:58→20:29)
[2020-07-15] MEDS: Famotidine 20 MG TAB PO SCH ×2 (08:58→22:26)
[2020-07-15] MEDS: Enoxaparin Sodium 40 MG/0.4 ML SYRINGE SC SCH (08:58)
[2020-07-15] MEDS: Famotidine/PF 20 mg/2ml Vial SLOW IVP SCH ×2 (08:58→20:29)
[2020-07-15 09:15] LABS: #Eosinphils 0.1 thou/uL (0.0-0.7); #Lymphocytes 0.9 thou/uL (1.20-3.40); #Monocytes 0.6 thou/uL (0.11-0.59); %Basophils 0.8 % (0.0-1.0); %Eosinophils 0.9 % (0.0-10.0); %Lymphocytes 16.7 % (28.0-48.0); %Monocytes 9.9 % (0.0-4.0); %Neutrophils 71.7 % (31.0-61.0); Hemoglobin 11.3 g/dL (14.0-18.0); Mean Corpuscular HGB CONC 35.7 g/dL (32.0-36.0); Mean Corpuscular Hemoglobin 33.2 pg (25.0-35.0); Mean Platelet Volume 7.1 fL (7.4-10.4); Platelet Count 127 thou/uL (130-400); RBC Distribution Width 11.6 % (11.5-14.5); Red Blood Cell (RBC) Count 3.41 mill/uL (4.00-5.20); White Blood Cell (WBC) Count 5.5 thou/uL (4.8-10.8)
[2020-07-15 09:36] LABS: Anion Gap 5 mmol/L (10-20); BUN (Urea Nitrogen) 4 mg/dL (8.9-20.6); Calc. Creatinine Clearance 151 mL/min (70-130); Calcium 7.9 mg/dL (7.8-10.44); Carbon Dioxide 36 mmol/L (22-29); Chloride 101 mmol/L (98-107); Glucose 102 mg/dL (70-105); Potassium 3.7 mmol/L (3.5-5.1); Sodium 138 mmol/L (136-145)
[2020-07-15] MEDS ORDERED: Metoclopramide HCl 10 MG/2 ML VIAL IVP PRN (13:15)
[2020-07-15] MEDS ORDERED: Dihydroergotamine Mesylate 1 MG/ML AMP SC SCH (13:15)
[2020-07-15] MEDS ORDERED: Dihydroergotamine Mesylate 1 MG/ML AMP SC PRN (15:47)
[2020-07-15] MEDS: fentaNYL Citrate/PF 2,000 MCG in Sodium Chloride 0.9% 60 ML IV PRN (22:01)
[2020-07-16] MEDS: Ketorolac Tromethamine 30 MG/ML VIAL IVP SCH ×3 (00:36→12:11)
[2020-07-16] MEDS: metroNIDAZOLE 500 MG in Premix Bag 1 BAG IVPB SCH ×2 (04:06→12:11)
[2020-07-16 05:50] LABS: #Eosinphils 0.1 thou/uL (0.0-0.7); #Lymphocytes 1.1 thou/uL (1.20-3.40); #Monocytes 0.6 thou/uL (0.11-0.59); #Neutrophils 2.6 thou/uL (1.40-6.50); %Basophils 0.6 % (0.0-1.0); %Eosinophils 2.4 % (0.0-10.0); %Lymphocytes 24.9 % (28.0-48.0); %Monocytes 12.6 % (0.0-4.0); %Neutrophils 59.5 % (31.0-61.0); Hemoglobin 11.6 g/dL (14.0-18.0); Mean Corpuscular HGB CONC 34.5 g/dL (32.0-36.0); Mean Corpuscular Hemoglobin 31.7 pg (25.0-35.0); Mean Corpuscular Volume 91.7 fL (78.0-98.0); Mean Platelet Volume 7.5 fL (7.4-10.4); Platelet Count 147 thou/uL (130-400); RBC Distribution Width 11.4 % (11.5-14.5); Red Blood Cell (RBC) Count 3.67 mill/uL (4.00-5.20); White Blood Cell (WBC) Count 4.3 thou/uL (4.8-10.8)
[2020-07-16] MEDS: Sodium Chloride 0.9% 1,000 ML IV SCH ×2 (06:35→14:18)
[2020-07-16] MEDS: Famotidine/PF 20 mg/2ml Vial SLOW IVP SCH (08:31)
[2020-07-16] MEDS: Enoxaparin Sodium 40 MG/0.4 ML SYRINGE SC SCH (08:31)
[2020-07-16] MEDS: Famotidine 20 MG TAB PO SCH (08:32)
[2020-07-16 16:26] VITALS: BP 127/76; TEMP 98.5
== END 2020-07-16 17:59 | disposition home or self-care (01) | DRG 331 ==
LOC: EDSTATUS 07-11 17:15 → SURG A 07-13 05:48 → SURG B 07-13 15:49
PROVIDERS: ADMIT Surgery; ATTEND Surgery
PROC: 0DBP0ZZ Excision of Rectum, Open Approach (ICD-10-PCS; principal; 2020-07-13)
PROC: 0DBN0ZZ Excision of Sigmoid Colon, Open Approach (ICD-10-PCS; 2020-07-13)
DX: K62.3 Rectal prolapse (principal); Z20.822 Contact with and (suspected) exposure to COVID-19; E86.0 Dehydration; G43.909 Migraine, unspecified, not intractable, without status migrainosus; Z87.442 Personal history of urinary calculi; Z79.899 Other long term (current) drug therapy; Z90.49 Acquired absence of other specified parts of digestive tract; Z88.1 Allergy status to other antibiotic agents
CPT/HCPCS: 36415; 80048; 83036; 85025; 88305; 88307; J1100; J1110; J1170; J1200; J1650; J1885; J1956; J2250; J2405; J2550; J2704; J2765; J3010; J3490; S0028

== ENCOUNTER 2020-08-10 08:52 | Emergency (ER) | payer OTHER ==
[2020-08-10] MEDS ORDERED: Morphine 4 MG/ML VIAL ONE (09:22)
[2020-08-10] MEDS ORDERED: Ondansetron PF 4 MG/2 ML Vial ONE (09:22)
[2020-08-10 09:50] LABS: #Eosinphils 0.1 thou/uL (0.0-0.7); #Lymphocytes 1.1 thou/uL (1.20-3.40); #Monocytes 0.5 thou/uL (0.11-0.59); #Neutrophils 3.3 thou/uL (1.40-6.50); %Basophils 0.5 % (0.0-1.0); %Eosinophils 2.4 % (0.0-10.0); %Lymphocytes 21.8 % (28.0-48.0); %Monocytes 10.6 % (0.0-4.0); %Neutrophils 64.7 % (31.0-61.0); Hemoglobin 12.9 g/dL (14.0-18.0); Mean Corpuscular Hemoglobin 31.2 pg (25.0-35.0); Mean Corpuscular Volume 91.8 fL (78.0-98.0); Platelet Count 206 thou/uL (130-400); RBC Distribution Width 11.9 % (11.5-14.5); Red Blood Cell (RBC) Count 4.13 mill/uL (4.00-5.20)
[2020-08-10 10:12] LABS: ALT (SGPT) 13 U/L (8-55); AST (SGOT) 12 U/L (5-34); Albumin 4.1 g/dL (3.5-5.0); Alkaline Phosphatase 60 U/L (50-130); Anion Gap 12 mmol/L (10-20); BUN (Urea Nitrogen) 9 mg/dL (8.9-20.6); Bilirubin, Total 0.5 mg/dL (0.2-1.2); Calc. Creatinine Clearance 0 mL/min (70-130); Calcium 8.9 mg/dL (7.8-10.44); Carbon Dioxide 29 mmol/L (22-29); Chloride 105 mmol/L (98-107); Globulin 2.5 g/dL (2.4-3.5); Glucose 87 mg/dL (70-105); Potassium 3.7 mmol/L (3.5-5.1); Protein, Total 6.6 g/dL (6.0-8.3); Sodium 142 mmol/L (136-145)
[2020-08-10 11:50] LABS: Bilirubin Negative (Negative); Blood, Urine Negative (Negative); Clarity Clear (Clear); Glucose, Urine (Dipstick) Normal (Negative); Ketone, Urine Negative (Negative); Leukocyte Negative Leu/uL (Negative); Nitrite Negative (Negative); Protein, Urine (Dipstick) Negative (Neg-Trace); Specific Gravity, Urine 1.008 (1.002-1.036); Urobilinogen Normal mg/dL (Less than 2); pH, Urine 7.5 (5.0-9.0)
[2020-08-10] MEDS ORDERED: Iopamidol-370 76% 500 ML 1 ML ONE (12:58)
== END 2020-08-10 12:00 | disposition home or self-care (01) ==
LOC: ERS 08:52
DX: G89.18 Other acute postprocedural pain (principal); R10.30 Lower abdominal pain, unspecified
CPT/HCPCS: 36415; 74177; 80053; 81003; 83605; 85025; 96374; 96375; J2270; J2405; Q9967

== ENCOUNTER 2020-10-02 13:18 | Emergency (ER) | payer OTHER ==
[2020-10-02] MEDS ORDERED: Ondansetron ODT 4 MG TAB ONE (13:56)
[2020-10-02] MEDS ORDERED: HYDROcodone/Acetaminophen 10/325 mg Tablet ONE (13:56)
== END 2020-10-02 14:41 | disposition home or self-care (01) ==
LOC: ERS 13:18
DX: S16.1XXA Strain of muscle, fascia and tendon at neck level, initial encounter (principal); Z79.899 Other long term (current) drug therapy; V89.2XXA Person injured in unspecified motor-vehicle accident, traffic, initial encounter
CPT/HCPCS: 72125; Q0162

== ENCOUNTER 2020-10-18 13:47 | Emergency (ER) | payer OTHER | END 2020-10-18 15:57 | disposition left against medical advice (07) | LOC: ERS 13:47 | DX: Z53.21 Procedure and treatment not carried out due to patient leaving prior to being seen by health care provider (principal) ==

== ENCOUNTER 2020-11-14 13:51 | Emergency (ER) | payer OTHER | END 2020-11-14 16:26 | disposition left against medical advice (07) | LOC: ERS 13:51 | DX: Z53.21 Procedure and treatment not carried out due to patient leaving prior to being seen by health care provider (principal) ==

== ENCOUNTER 2020-11-14 21:03 | Inpatient (IN) | payer OTHER ==
[2020-11-15 00:46] VITALS: BMI 22.1
[2020-11-15] MEDS ORDERED: Ondansetron ODT 4 MG TAB PO PRN (05:26)
[2020-11-15] MEDS ORDERED: Acetaminophen 325 MG TAB PO PRN (05:26)
[2020-11-15] MEDS ORDERED: Ondansetron PF 4 MG/2 ML Vial IVP PRN (05:26)
[2020-11-15] MEDS ORDERED: cefTRIAXone\\ROCEPHIN 1 GM in Sodium Chloride 0.9% 100 ML IVPB SCH ×2 (05:30→21:00)
[2020-11-15] MEDS ORDERED: Sodium Chloride 0.9% 1,000 ML IV SCH (05:30)
[2020-11-15] MEDS: metroNIDAZOLE 500 MG in Premix Bag 1 BAG IVPB SCH ×3 (06:19→22:11)
[2020-11-15] MEDS: Sodium Chloride 0.9% 1,000 ML IV SCH ×3 (06:19→23:47)
[2020-11-15 06:35] LABS: #Eosinphils 0.2 thou/uL (0.0-0.7); #Lymphocytes 1.4 thou/uL (1.20-3.40); #Monocytes 0.5 thou/uL (0.11-0.59); %Basophils 0.8 % (0.0-1.0); %Eosinophils 4.6 % (0.0-10.0); %Monocytes 12.8 % (0.0-4.0); %Neutrophils 47.7 % (31.0-61.0); Mean Corpuscular HGB CONC 35.1 g/dL (32.0-36.0); Mean Corpuscular Hemoglobin 31.5 pg (25.0-35.0); Mean Corpuscular Volume 89.5 fL (78.0-98.0); Mean Platelet Volume 7.8 fL (7.4-10.4); Platelet Count 175 thou/uL (130-400); Red Blood Cell (RBC) Count 4.78 mill/uL (4.00-5.20); White Blood Cell (WBC) Count 4.2 thou/uL (4.8-10.8)
[2020-11-15 06:57] LABS: ALT (SGPT) 12 U/L (8-55); AST (SGOT) 13 U/L (5-34); Albumin 4.3 g/dL (3.5-5.0); Alkaline Phosphatase 52 U/L (50-130); Anion Gap 9 mmol/L (10-20); BUN (Urea Nitrogen) 9 mg/dL (8.9-20.6); Bilirubin, Total 1.2 mg/dL (0.2-1.2); Calc. Creatinine Clearance 120 mL/min (70-130); Carbon Dioxide 28 mmol/L (22-29); Chloride 107 mmol/L (98-107); Globulin 2.5 g/dL (2.4-3.5); Glucose 101 mg/dL (70-105); Potassium 3.9 mmol/L (3.5-5.1); Protein, Total 6.8 g/dL (6.0-8.3); Sodium 140 mmol/L (136-145)
[2020-11-15] MEDS ORDERED: traMADol HCl 50 MG TAB PO SCH (11:15)
[2020-11-16] MEDS: metroNIDAZOLE 500 MG in Premix Bag 1 BAG IVPB SCH ×2 (05:19→14:13)
[2020-11-16 06:40] LABS: Anion Gap 9 mmol/L (10-20); BUN (Urea Nitrogen) 8 mg/dL (8.9-20.6); Calc. Creatinine Clearance 126 mL/min (70-130); Calcium 8.6 mg/dL (7.8-10.44); Carbon Dioxide 26 mmol/L (22-29); Chloride 107 mmol/L (98-107); Glucose 89 mg/dL (70-105); Potassium 3.7 mmol/L (3.5-5.1); Sodium 138 mmol/L (136-145)
[2020-11-16 06:44] LABS: #Eosinphils 0.2 thou/uL (0.0-0.7); #Monocytes 0.4 thou/uL (0.11-0.59); #Neutrophils 1.5 thou/uL (1.40-6.50); %Basophils 0.7 % (0.0-1.0); %Eosinophils 5.6 % (0.0-10.0); %Lymphocytes 33.7 % (28.0-48.0); %Monocytes 12.2 % (0.0-4.0); %Neutrophils 47.8 % (31.0-61.0); Hemoglobin 13.7 g/dL (14.0-18.0); Mean Corpuscular HGB CONC 34.6 g/dL (32.0-36.0); Mean Corpuscular Hemoglobin 31.1 pg (25.0-35.0); Mean Corpuscular Volume 89.8 fL (78.0-98.0); Mean Platelet Volume 7.8 fL (7.4-10.4); Platelet Count 157 thou/uL (130-400); RBC Distribution Width 11.8 % (11.5-14.5); Red Blood Cell (RBC) Count 4.42 mill/uL (4.00-5.20); White Blood Cell (WBC) Count 3.1 thou/uL (4.8-10.8)
[2020-11-16] MEDS: Sodium Chloride 0.9% 1,000 ML IV SCH ×2 (09:37→14:14)
[2020-11-16 18:32] VITALS: BP 131/74; TEMP 98.2
== END 2020-11-16 17:47 | disposition home or self-care (01) | DRG 394 ==
LOC: T4-B 21:03 → INTOOBSV 11-15 06:50 → OBSVTOIN 11-15 06:50
PROVIDERS: ADMIT Student in an Organized Health Care Education/Training Program; ATTEND Internal Medicine
DX: K61.2 Anorectal abscess (principal); K62.6 Ulcer of anus and rectum; K59.89 Other specified functional intestinal disorders; F41.9 Anxiety disorder, unspecified; K62.3 Rectal prolapse; K64.5 Perianal venous thrombosis; Y83.8 Other surgical procedures as the cause of abnormal reaction of the patient, or of later complication, without mention of misadventure at the time of the procedure; K62.89 Other specified diseases of anus and rectum; F32.9 Major depressive disorder, single episode, unspecified; Z88.1 Allergy status to other antibiotic agents; Z88.8 Allergy status to other drugs, medicaments and biological substances; Z98.890 Other specified postprocedural states
CPT/HCPCS: 36415; 80048; 80053; 85025; 87040; J0696; J3490

== ENCOUNTER 2021-03-16 16:08 | Emergency (ER) | payer OTHER ==
[2021-03-16] MEDS ORDERED: Ondansetron PF 4 MG/2 ML Vial ONE (17:10)
[2021-03-16] MEDS ORDERED: Morphine 4 MG/ML VIAL ONE ×2 (17:10→19:09)
[2021-03-16 17:41] LABS: #Lymphocytes 0.7 thou/uL (1.20-3.40); #Monocytes 0.5 thou/uL (0.11-0.59); %Basophils 0.3 % (0.0-1.0); %Eosinophils 0.4 % (0.0-10.0); %Lymphocytes 15.8 % (28.0-48.0); %Monocytes 11.8 % (0.0-4.0); %Neutrophils 71.7 % (31.0-61.0); Hemoglobin 14.2 g/dL (14.0-18.0); Mean Corpuscular HGB CONC 34.4 g/dL (32.0-36.0); Mean Corpuscular Hemoglobin 30.5 pg (25.0-35.0); Mean Corpuscular Volume 88.8 fL (78.0-98.0); Mean Platelet Volume 6.6 fL (7.4-10.4); Platelet Count 226 thou/uL (130-400); RBC Distribution Width 11.7 % (11.5-14.5); Red Blood Cell (RBC) Count 4.66 mill/uL (4.00-5.20); White Blood Cell (WBC) Count 4.1 thou/uL (4.8-10.8)
[2021-03-16 18:06] LABS: ALT (SGPT) 17 U/L (8-55); AST (SGOT) 15 U/L (5-34); Albumin 4.5 g/dL (3.5-5.0); Alkaline Phosphatase 74 U/L (50-130); Anion Gap 10 mmol/L (10-20); BUN (Urea Nitrogen) 6 mg/dL (8.9-20.6); Calc. Creatinine Clearance 0 mL/min (70-130); Calcium 9.2 mg/dL (7.8-10.44); Carbon Dioxide 30 mmol/L (22-29); Chloride 98 mmol/L (98-107); Globulin 3.8 g/dL (2.4-3.5); Glucose 97 mg/dL (70-105); Potassium 3.1 mmol/L (3.5-5.1); Protein, Total 8.3 g/dL (6.0-8.3); Sodium 135 mmol/L (136-145)
[2021-03-16 18:20] LABS: Bilirubin Negative (Negative); Blood, Urine Negative (Negative); Clarity Clear (Clear); Glucose, Urine (Dipstick) Normal (Negative); Ketone, Urine Negative (Negative); Leukocyte Negative Leu/uL (Negative); Nitrite Negative (Negative); Protein, Urine (Dipstick) Negative (Neg-Trace); Specific Gravity, Urine 1.005 (1.002-1.036); Urobilinogen Normal mg/dL (Less than 2); pH, Urine 6.5 (5.0-9.0)
[2021-03-16 18:52] LABS: SARS-CoV-2 NAA Rapid Test Not Detected (NotDetected)
[2021-03-16] MEDS ORDERED: Ketorolac Tromethamine 30 MG/ML VIAL ONE (20:20)
[2021-03-17] MEDS ORDERED: Morphine 4 MG/ML VIAL ONE (08:17)
== END 2021-03-17 08:42 | disposition short-term general hospital (02) ==
LOC: ERS 16:08
DX: K94.19 Other complications of enterostomy (principal); Z20.822 Contact with and (suspected) exposure to COVID-19
CPT/HCPCS: 0240U; 74177; 80053; 81003; 83605; 85025; 96374; 96375; 96376; J1885; J2270; J2405

== ENCOUNTER 2021-03-20 13:59 | Emergency (ER) | payer OTHER ==
[2021-03-20 14:42] LABS: #Eosinphils 0.1 thou/uL (0.0-0.7); #Monocytes 0.5 thou/uL (0.11-0.59); #Neutrophils 2.9 thou/uL (1.40-6.50); %Basophils 0.8 % (0.0-1.0); %Eosinophils 1.5 % (0.0-10.0); %Lymphocytes 22.4 % (28.0-48.0); %Monocytes 11.3 % (0.0-4.0); Hemoglobin 14.4 g/dL (14.0-18.0); Mean Corpuscular Hemoglobin 29.9 pg (25.0-35.0); Mean Corpuscular Volume 87.9 fL (78.0-98.0); Mean Platelet Volume 6.6 fL (7.4-10.4); Platelet Count 251 thou/uL (130-400); RBC Distribution Width 11.9 % (11.5-14.5); Red Blood Cell (RBC) Count 4.83 mill/uL (4.00-5.20); White Blood Cell (WBC) Count 4.6 thou/uL (4.8-10.8)
[2021-03-20 15:01] LABS: ALT (SGPT) 14 U/L (8-55); AST (SGOT) 15 U/L (5-34); Albumin 4.5 g/dL (3.5-5.0); Alkaline Phosphatase 71 U/L (50-130); Anion Gap 12 mmol/L (10-20); BUN (Urea Nitrogen) 5 mg/dL (8.9-20.6); Bilirubin, Total 0.9 mg/dL (0.2-1.2); Calc. Creatinine Clearance 0 mL/min (70-130); Calcium 9.4 mg/dL (7.8-10.44); Carbon Dioxide 29 mmol/L (22-29); Chloride 100 mmol/L (98-107); Globulin 3.5 g/dL (2.4-3.5); Glucose 108 mg/dL (70-105); Lipase 20 U/L (8-78); Magnesium 1.8 mg/dL (1.7-2.2); Potassium 3.9 mmol/L (3.5-5.1); Sodium 137 mmol/L (136-145)
[2021-03-20] MEDS ORDERED: Morphine 4 MG/ML VIAL ONE (15:40)
[2021-03-20] MEDS ORDERED: Ondansetron PF 4 MG/2 ML Vial ONE (15:40)
== END 2021-03-20 16:30 | disposition home or self-care (01) ==
LOC: ERS 13:59
DX: T85.848A Pain due to other internal prosthetic devices, implants and grafts, initial encounter (principal)
CPT/HCPCS: 36415; 80053; 83605; 83690; 83735; 85025; 94760; 96374; 96375; J2270; J2405

== ENCOUNTER 2021-03-27 18:48 | Emergency (ER) | payer OTHER ==
[~2021-03-27 18:48] MED LIST: Iopamidol-370 76% 500 ML 1 ML ONE
[2021-03-27 19:34] LABS: #Eosinphils 0.1 thou/uL (0.0-0.7); #Lymphocytes 1.2 thou/uL (1.20-3.40); #Monocytes 0.5 thou/uL (0.11-0.59); #Neutrophils 3.3 thou/uL (1.40-6.50); %Eosinophils 2.8 % (0.0-10.0); %Lymphocytes 23.7 % (28.0-48.0); %Neutrophils 64.4 % (31.0-61.0); Mean Corpuscular HGB CONC 34.1 g/dL (32.0-36.0); Mean Corpuscular Hemoglobin 30.5 pg (25.0-35.0); Mean Corpuscular Volume 89.3 fL (78.0-98.0); Platelet Count 254 thou/uL (130-400); RBC Distribution Width 12.1 % (11.5-14.5); Red Blood Cell (RBC) Count 4.58 mill/uL (4.00-5.20); White Blood Cell (WBC) Count 5.1 thou/uL (4.8-10.8)
[2021-03-27] MEDS ORDERED: Morphine 4 MG/ML VIAL ONE ×2 (19:37→21:28)
[2021-03-27] MEDS ORDERED: Ondansetron PF 4 MG/2 ML Vial ONE (19:37)
[2021-03-27 19:58] LABS: ALT (SGPT) 12 U/L (8-55); AST (SGOT) 17 U/L (5-34); Albumin 4.4 g/dL (3.5-5.0); Alkaline Phosphatase 86 U/L (50-130); Anion Gap 12 mmol/L (10-20); BUN (Urea Nitrogen) 7 mg/dL (8.9-20.6); Calc. Creatinine Clearance 0 mL/min (70-130); Calcium 9.1 mg/dL (7.8-10.44); Carbon Dioxide 27 mmol/L (22-29); Chloride 101 mmol/L (98-107); Globulin 3.6 g/dL (2.4-3.5); Glucose 137 mg/dL (70-105); Lipase 32 U/L (8-78); Potassium 4.3 mmol/L (3.5-5.1); Sodium 136 mmol/L (136-145)
[2021-03-27] MEDS ORDERED: Midazolam HCl 2 mg/2 ml Vial ONE (22:30)
== END 2021-03-27 23:15 | disposition home or self-care (01) ==
LOC: ERS 18:48
DX: R10.31 Right lower quadrant pain (principal)
CPT/HCPCS: 36415; 74177; 80053; 83605; 83690; 85025; 96374; 96375; 96376; J2250; J2270; J2405; Q9967

== ENCOUNTER 2021-03-28 17:31 | Emergency (ER) | payer OTHER ==
[2021-03-28 20:14] LABS: #Eosinphils 0.1 thou/uL (0.0-0.7); #Lymphocytes 0.9 thou/uL (1.20-3.40); #Monocytes 0.5 thou/uL (0.11-0.59); #Neutrophils 2.9 thou/uL (1.40-6.50); %Basophils 1.1 % (0.0-1.0); %Eosinophils 2.6 % (0.0-10.0); %Lymphocytes 19.6 % (28.0-48.0); %Neutrophils 65.8 % (31.0-61.0); Hemoglobin 12.7 g/dL (14.0-18.0); Mean Corpuscular HGB CONC 34.1 g/dL (32.0-36.0); Mean Corpuscular Hemoglobin 30.3 pg (25.0-35.0); Mean Corpuscular Volume 88.7 fL (78.0-98.0); Mean Platelet Volume 7.1 fL (7.4-10.4); Platelet Count 225 thou/uL (130-400); RBC Distribution Width 12.2 % (11.5-14.5); Red Blood Cell (RBC) Count 4.19 mill/uL (4.00-5.20); White Blood Cell (WBC) Count 4.4 thou/uL (4.8-10.8)
[2021-03-28] MEDS ORDERED: Morphine 4 MG/ML VIAL ONE (20:24)
[2021-03-28] MEDS ORDERED: Ondansetron PF 4 MG/2 ML Vial ONE (20:24)
[2021-03-28 20:37] LABS: ALT (SGPT) 16 U/L (8-55); AST (SGOT) 34 U/L (5-34); Alkaline Phosphatase 67 U/L (50-130); Anion Gap 12 mmol/L (10-20); BUN (Urea Nitrogen) 8 mg/dL (8.9-20.6); Bilirubin, Total 0.9 mg/dL (0.2-1.2); Calc. Creatinine Clearance 0 mL/min (70-130); Carbon Dioxide 26 mmol/L (22-29); Chloride 104 mmol/L (98-107); Globulin 3.7 g/dL (2.4-3.5); Glucose 90 mg/dL (70-105); Potassium 4.6 mmol/L (3.5-5.1); Protein, Total 7.7 g/dL (6.0-8.3); Sodium 137 mmol/L (136-145)
== END 2021-03-28 22:49 | disposition home or self-care (01) ==
LOC: ERS 17:31
DX: K94.19 Other complications of enterostomy (principal)
CPT/HCPCS: 36415; 74177; 80053; 83605; 85025; 96374; 96375; J2270; J2405; Q9967

== ENCOUNTER 2021-04-01 19:21 | Emergency (ER) | payer OTHER ==
[2021-04-01 20:20] LABS: #Lymphocytes 0.7 thou/uL (1.20-3.40); #Monocytes 0.5 thou/uL (0.11-0.59); #Neutrophils 3.8 thou/uL (1.40-6.50); %Basophils 0.4 % (0.0-1.0); %Eosinophils 0.4 % (0.0-10.0); %Lymphocytes 13.3 % (28.0-48.0); %Monocytes 10.2 % (0.0-4.0); %Neutrophils 75.6 % (31.0-61.0); Hemoglobin 12.5 g/dL (14.0-18.0); Mean Corpuscular HGB CONC 34.6 g/dL (32.0-36.0); Mean Corpuscular Volume 89.7 fL (78.0-98.0); Mean Platelet Volume 6.4 fL (7.4-10.4); Platelet Count 171 thou/uL (130-400); RBC Distribution Width 12.4 % (11.5-14.5); Red Blood Cell (RBC) Count 4.02 mill/uL (4.00-5.20); White Blood Cell (WBC) Count 5.1 thou/uL (4.8-10.8)
[2021-04-01] MEDS ORDERED: Ondansetron PF 4 MG/2 ML Vial ONE (20:31)
[2021-04-01] MEDS ORDERED: Morphine 4 MG/ML VIAL ONE ×2 (20:31→21:18)
[2021-04-01 20:42] LABS: ALT (SGPT) 14 U/L (8-55); AST (SGOT) 21 U/L (5-34); Albumin 3.7 g/dL (3.5-5.0); Alkaline Phosphatase 63 U/L (50-130); Anion Gap 9 mmol/L (10-20); BUN (Urea Nitrogen) 4 mg/dL (8.9-20.6); Bilirubin, Total 0.5 mg/dL (0.2-1.2); Calc. Creatinine Clearance 0 mL/min (70-130); Calcium 8.7 mg/dL (7.8-10.44); Carbon Dioxide 28 mmol/L (22-29); Chloride 106 mmol/L (98-107); Globulin 3.2 g/dL (2.4-3.5); Glucose 88 mg/dL (70-105); Potassium 3.9 mmol/L (3.5-5.1); Protein, Total 6.9 g/dL (6.0-8.3); Sodium 139 mmol/L (136-145)
== END 2021-04-01 21:55 | disposition home or self-care (01) ==
LOC: ERS 19:21
DX: K94.19 Other complications of enterostomy (principal)
CPT/HCPCS: 36415; 80053; 83605; 85025; 96374; 96375; 96376; J2270; J2405

== ENCOUNTER 2021-04-07 06:15 | Emergency (ER) | payer OTHER ==
[2021-04-07] MEDS ORDERED: Ketorolac Tromethamine 30 MG/ML VIAL ONE (08:25)
[2021-04-07] MEDS ORDERED: Acetaminophen 500 MG TAB ONE (08:25)
[2021-04-07] MEDS ORDERED: Norepinephrine 4 MG/4 ML VIAL ONE (11:03)
== END 2021-04-07 08:30 | disposition home or self-care (01) ==
LOC: ERS 06:15
DX: R10.9 Unspecified abdominal pain (principal)
CPT/HCPCS: 99283; J1885

== ENCOUNTER 2022-01-04 20:29 | Emergency (ER) | payer SELFPAY ==
[2022-01-04] MEDS ORDERED: Ondansetron PF 4 MG/2 ML Vial ONE (20:59)
[2022-01-04] MEDS ORDERED: Morphine 4 MG/ML VIAL ONE (20:59)
[2022-01-04 21:34] LABS: #Monocytes 0.8 thou/uL (0.11-0.59); #Neutrophils 4.6 thou/uL (1.40-6.50); %Basophils 0.3 % (0.0-1.0); %Eosinophils 0.5 % (0.0-10.0); %Lymphocytes 15.9 % (21.0-51.0); %Neutrophils 71.3 % (42.0-75.0); Hemoglobin 13.2 g/dL (14.0-18.0); Mean Corpuscular HGB CONC 34.4 g/dL (32.0-36.0); Mean Corpuscular Volume 87.2 fL (78.0-98.0); Mean Platelet Volume 7.4 fL (7.4-10.4); Platelet Count 178 thou/uL (130-400); RBC Distribution Width 11.3 % (11.5-14.5); Red Blood Cell (RBC) Count 4.41 mill/uL (4.70-6.10); White Blood Cell (WBC) Count 6.5 thou/uL (4.8-10.8)
[2022-01-04 21:53] LABS: ALT (SGPT) 22 U/L (8-55); AST (SGOT) 22 U/L (5-34); Alkaline Phosphatase 60 U/L (40-110); Anion Gap 15 mmol/L (10-20); BUN (Urea Nitrogen) 7 mg/dL (8.9-20.6); Bilirubin, Total 1.3 mg/dL (0.2-1.2); CK (CPK) 67 U/L (30-200); Calc. Creatinine Clearance 0 mL/min (70-130); Calcium 8.9 mg/dL (7.8-10.44); Carbon Dioxide 23 mmol/L (22-29); Chloride 101 mmol/L (98-107); Estimated GFR 126; Globulin 2.9 g/dL (2.4-3.5); Glucose 112 mg/dL (70-105); Lipase 7 U/L (8-78); Potassium 3.4 mmol/L (3.5-5.1); Protein, Total 6.9 g/dL (6.0-8.3); Sodium 136 mmol/L (136-145)
[2022-01-05 00:33] LABS: Bilirubin Negative (Negative); Blood, Urine Negative (Negative); Clarity Clear (Clear); Glucose, Urine (Dipstick) Normal (Negative); Ketone, Urine Negative (Negative); Leukocyte Negative Leu/uL (Negative); Nitrite Negative (Negative); Protein, Urine (Dipstick) Negative (Neg-Trace); Specific Gravity, Urine 1.004 (1.002-1.036); Urobilinogen Normal mg/dL (Less than 2); pH, Urine 6.5 (5.0-9.0)
== END 2022-01-04 23:32 | disposition home or self-care (01) ==
LOC: ERS 20:29
DX: R10.84 Generalized abdominal pain (principal)
CPT/HCPCS: 80053; 81003; 82550; 83690; 85025; 96361; 96374; 96375; J2270; J2405

== ENCOUNTER 2022-12-20 22:54 | Emergency (ER) | payer BC ==
[2022-12-21 01:37] LABS: #Eosinphils 0.1 thou/uL (0.0-0.7); #Monocytes 0.5 thou/uL (0.11-0.59); #Neutrophils 4.2 thou/uL (1.40-6.50); %Basophils 0.7 % (0.0-1.0); %Lymphocytes 18.1 % (21.0-51.0); %Monocytes 8.5 % (0.0-10.0); %Neutrophils 71.5 % (42.0-75.0); Hematocrit 39.2 % (42.0-52.0); Hemoglobin 14.1 g/dL (14.0-18.0); Mean Corpuscular Hemoglobin 30.6 pg (27.0-31.0); Platelet Count 218 10x3/uL (130-400); RBC Distribution Width 12.1 % (11.5-14.5); Red Blood Cell (RBC) Count 4.61 mill/uL (4.70-6.10); White Blood Cell (WBC) Count 5.9 10x3/uL (4.8-10.8)
[2022-12-21] MEDS ORDERED: Ondansetron PF 4 MG/2 ML Vial ONE (01:45)
[2022-12-21] MEDS ORDERED: Ketorolac Tromethamine 30 MG/ML VIAL ONE (01:45)
[2022-12-21 02:01] LABS: ALT (SGPT) 19 U/L (8-55); AST (SGOT) 19 U/L (5-34); Albumin 4.3 g/dL (3.5-5.0); Alkaline Phosphatase 71 U/L (40-110); Anion Gap 14 mmol/L (10-20); BUN (Urea Nitrogen) 8 mg/dL (8.9-20.6); Bilirubin, Total 1.1 mg/dL (0.2-1.2); Calc. Creatinine Clearance 0 mL/min (70-130); Calcium 9.6 mg/dL (7.8-10.44); Carbon Dioxide 25 mmol/L (22-29); Chloride 103 mmol/L (98-107); Estimated GFR 108; Globulin 2.8 g/dL (2.4-3.5); Glucose 96 mg/dL (70-105); Lipase 24 U/L (8-78); Magnesium 1.7 mg/dL (1.6-2.6); Potassium 3.9 mmol/L (3.5-5.1); Protein, Total 7.1 g/dL (6.0-8.3); Sodium 138 mmol/L (136-145)
== END 2022-12-21 03:38 | disposition home or self-care (01) ==
LOC: ERS 22:54
DX: R10.84 Generalized abdominal pain (principal); R11.2 Nausea with vomiting, unspecified
CPT/HCPCS: 74177; 80053; 83690; 83735; 85025; 96361; 96374; 96375; J1885; J2405